=== PATIENT | male | born 1995 | race Caucasian/White ===

== ENCOUNTER 2021-09-03 09:45 | Emergency (ER) | payer OTHER ==
[~2021-09-03] VITALS: Ht 195.6 cm; Wt 79.4 kg
[2021-09-03] MEDS ORDERED: KEFLEX250 MG PO (10:22)
== END 2021-09-03 10:46 | disposition home or self-care (01) ==
LOC: FER 09:45
DX: S61.412A Laceration without foreign body of left hand, initial encounter (principal); F17.210 Nicotine dependence, cigarettes, uncomplicated; Z23 Encounter for immunization; W26.8XXA Contact with other sharp object(s), not elsewhere classified, initial encounter; Y92.69 Other specified industrial and construction area as the place of occurrence of the external cause; Y99.0 Civilian activity done for income or pay
CPT/HCPCS: 90471; 90715; 99282